=== PATIENT | female | born 1990 | race American Indian/Alaskan Native ===

== ENCOUNTER → 2017-11-17 | Emergency (ER) | payer OTHER ==
[~2017-11-17] MED LIST: Colace 100MG PO; FERROUS SULFATE 325 MG PO; Mylicon 125MG PO; OXYC1TAB9 PO; PRENATE ADVANCE PO
== END | disposition left against medical advice (07) ==
LOC: ER 13:48
DX: Z53.20 Procedure and treatment not carried out because of patient's decision for unspecified reasons (principal)

== ENCOUNTER → 2018-06-15 | Emergency (ER) | payer OTHER ==
[~2018-06-15] VITALS: Ht 167.6 cm; Wt 56.7 kg
[~2018-06-15] MED LIST changes: +FLONASE ALLERG9.9 ML NASAL; +MUCUS ER1200 MG PO; +SKELAXIN800 MG PO
== END | disposition home or self-care (01) ==
LOC: ER 03:23
DX: R13.10 Dysphagia, unspecified (principal); M62.838 Other muscle spasm

== ENCOUNTER 2018-07-17 09:20 | Outpatient (CLI) | payer OTHER | END 2018-07-17 09:43 | disposition home or self-care (01) | LOC: RX STUDY 09:20 | DX: R13.12 Dysphagia, oropharyngeal phase (principal) ==